=== PATIENT | male | born 1930 | race Caucasian/White ===

== ENCOUNTER 2019-10-07 06:14 | Inpatient (IN) | payer MEDICARE, BC ==
[~2019-10-07] VITALS: Ht 170.2 cm; Wt 75.7 kg
[2019-10-07 08:00] VITALS: BP 157/96
[2019-10-07] MEDS ORDERED: ZOLPIDEM TARTRATE 5 MG TABLET PO PRN (08:30)
[2019-10-07] MEDS ORDERED: MAG HYDROX/AL HYDROX/SIMETH 30 ML UDC PO PRN (08:30)
[2019-10-07] MEDS ORDERED: LORAZEPAM 0.5 MG TABLET PO PRN (08:30)
[2019-10-07] MEDS ORDERED: ACETAMINOPHEN 325 MG TABLET PO PRN (08:30)
[2019-10-07] MEDS ORDERED: MAGNESIUM HYDROXIDE 30 ML UDC PO PRN (08:30)
[2019-10-07] MEDS ORDERED: BLOOD SUGAR DIAGNOSTIC 1 EACH STRIP IN ONE (08:30)
[2019-10-07] MEDS ORDERED: FELO10TA44 PO (08:45)
[2019-10-07] MEDS ORDERED: ATOR40TA PO (08:45)
[2019-10-07] MEDS ORDERED: METO25TA4 PO (08:45)
[2019-10-07] MEDS ORDERED: ASPI-1169 PO (08:45)
--- NOTE | 2019-10-07 09:59 | NUR ---
GPS/RN DR YEE NOTIFIED OF ADMISSION . WILL COME TO SEE THE PT. MEDS READY TO RECONCILE.
[2019-10-07 16:00] VITALS: BP 135/66
--- NOTE | 2019-10-07 19:30 | NUR ---
GPS-RN ADMITTED THIS 88 Y/O MALE, ON 5150 FOR DTS/GD. NO ACUTE DISTRESS NOTED. UPON FACE TO FACE ASSESSMENT, PT. IS ALERT AND ORIENTED X1-2, CONFUSED, C/O FEELING DEPRESSED, AMBULATORY WITH WALKER. PATIENT IS UNKEMPT AND DISHEVELED. PATIENT WAS CONTRABAND. REVIEWED PATIENT'S RIGHTS. SAFETY PRECAUTIONS IMPLEMENTED. WILL CONTINUE TO MONITOR Q15MIN ROUNDS FOR SAFETY AND BEHAVIOR.
[2019-10-07 20:00] VITALS: BP 139/72
[2019-10-07 20:07] VITALS: BP 139/72
[2019-10-07] MEDS: QUETIAPINE FUMARATE 25 MG TABLET PO SCH (21:27)
[2019-10-07] MEDS: ATORVASTATIN 40 MG TABLET PO SCH (21:27)
[2019-10-07] MEDS: SULFAMETH/TRIMETH 800/160 MG 1 UDTAB TABLET PO SCH (21:31)
[2019-10-08 07:19] LABS: BASOPHILS % (AUTO) 0.6 % (0.0-2.0); EOSINOPHILS % (AUTO) 2.1 % (0.0-6.0); HEMATOCRIT 35 % (39-51); HEMOGLOBIN 11.6 g/dL (13.5-17.5); LYMPHOCYTES # (AUTO) 1.5 /CMM (0.8-4.8); LYMPHOCYTES % (AUTO) 20.2 % (20.0-44.0); MEAN CORPUSCULAR HGB CONC 33 g/dl (31.0-36.0); MEAN CORPUSCULAR VOLUME 88 fL (80-96); MONOCYTES # (AUTO) 0.7 /CMM (0.1-1.30); MONOCYTES % (AUTO) 9.6 % (2.0-12.0); NEUTROPHILS % (AUTO) 67.5 % (43.0-81.0); PLATELET COUNT (AUTO) 207 /CMM (150-450); RED BLOOD CELL COUNT(AUTO) 3.95 MIL/uL (4.5-6.0); WHITE BLOOD COUNT (AUTO) 7.4 K/uL (4.3-11.0)
[2019-10-08 07:35] LABS: CALCIUM, SERUM 8.8 mg/dL (8.5-10.1); POTASSIUM 4.3 mmol/L (3.5-5.1)
[2019-10-08 07:57] LABS: CHOLESTEROL 143 mg/dL (<200); HDL CHOLESTEROL 58 mg/dL (40-60); LDL 78 mg/dL (0-99); TRIGLYCERIDES 48 mg/dL (30-150)
[2019-10-08 08:00] VITALS: BP 126/58
[2019-10-08] MEDS: SULFAMETH/TRIMETH 800/160 MG 1 UDTAB TABLET PO SCH ×2 (08:32→20:20)
[2019-10-08] MEDS: ASPIRIN 81 MG TAB.CHEW PO SCH (08:32)
[2019-10-08] MEDS: ESCITALOPRAM OXALATE (10 MG) 10 MG TABLET PO SCH (08:32)
[2019-10-08] MEDS: AMLODIPINE BESYLATE 10 MG TABLET PO SCH (08:36)
[2019-10-08] MEDS: METOPROLOL SUCCINATE 25 MG TAB.SR.24H PO SCH (08:37)
[2019-10-08] MEDS ORDERED: FELODIPINE 2.5 MG TAB.SR.24H PO SCH (09:00)
--- NOTE | 2019-10-08 15:22 | NUR ---
Family Contact: SW called the pts step son, Lucius ([phone]), and went through the pts initial treatment and discharge plan. He informed the SW that the pt currently resides at [facility].
--- NOTE | 2019-10-08 16:02 | NUR ---
Initial Discharge Plan: Pt currently resides at [facility] located at [address] [place] [address]; . Per pt, he would like to return to his home. SW will work with the pt and the MD regarding appropriate discharge planning. SW will form a safe and proper discharge.
[2019-10-08 16:10] VITALS: BP 102/50
[2019-10-08 20:01] VITALS: BP 151/87
[2019-10-08] MEDS: ATORVASTATIN 40 MG TABLET PO SCH (21:14)
[2019-10-08] MEDS: QUETIAPINE FUMARATE 25 MG TABLET PO SCH (21:14)
[2019-10-09 08:00] VITALS: BP 142/61
[2019-10-09] MEDS: METOPROLOL SUCCINATE 25 MG TAB.SR.24H PO SCH (08:56)
[2019-10-09] MEDS: ASPIRIN 81 MG TAB.CHEW PO SCH (08:56)
[2019-10-09] MEDS: SULFAMETH/TRIMETH 800/160 MG 1 UDTAB TABLET PO SCH ×2 (08:56→21:23)
[2019-10-09] MEDS: AMLODIPINE BESYLATE 10 MG TABLET PO SCH (08:56)
[2019-10-09] MEDS: ESCITALOPRAM OXALATE (10 MG) 10 MG TABLET PO SCH (08:56)
--- NOTE | 2019-10-09 12:46 | NUR ---
Facility Contact: SW called [facility] ([phone]) and spoke to the law office receptionist who stated that there is no one at Admissions who can assist the SW at this time.
[2019-10-09 16:00] VITALS: BP 116/63
[2019-10-09 21:07] VITALS: BP 140/58
[2019-10-09] MEDS: QUETIAPINE FUMARATE 25 MG TABLET PO SCH (21:23)
[2019-10-09] MEDS: ATORVASTATIN 40 MG TABLET PO SCH (21:23)
[2019-10-10 08:00] VITALS: BP 135/62
[2019-10-10] MEDS: ASPIRIN 81 MG TAB.CHEW PO SCH (08:37)
[2019-10-10] MEDS: ESCITALOPRAM OXALATE (10 MG) 10 MG TABLET PO SCH (08:37)
[2019-10-10] MEDS: AMLODIPINE BESYLATE 10 MG TABLET PO SCH (08:38)
[2019-10-10] MEDS: SULFAMETH/TRIMETH 800/160 MG 1 UDTAB TABLET PO SCH ×2 (08:38→21:27)
[2019-10-10] MEDS: METOPROLOL SUCCINATE 25 MG TAB.SR.24H PO SCH (08:38)
[2019-10-10] MEDS: QUETIAPINE FUMARATE 25 MG TABLET PO SCH ×3 (10:59→21:27)
[2019-10-10 16:00] VITALS: BP 125/60
[2019-10-10 20:30] VITALS: BP 105/57
[2019-10-10] MEDS: ATORVASTATIN 40 MG TABLET PO SCH (21:27)
[2019-10-11 08:00] VITALS: BP 135/55
[2019-10-11 08:29] VITALS: BP 135/55
[2019-10-11] MEDS: AMLODIPINE BESYLATE 10 MG TABLET PO SCH (08:29)
[2019-10-11] MEDS: ASPIRIN 81 MG TAB.CHEW PO SCH (08:29)
[2019-10-11] MEDS: QUETIAPINE FUMARATE 25 MG TABLET PO SCH (08:29)
[2019-10-11] MEDS: METOPROLOL SUCCINATE 25 MG TAB.SR.24H PO SCH (08:29)
--- NOTE | 2019-10-11 10:23 | NUR ---
Probable Cause (PC) Hearing Notification: SW called the pts step son, Lucius ([phone]), and informed him of the hearing and what it entails. He stated that he does not believe that the pt needs to remain in the hospital and stated that he will attend the hearing.
--- NOTE | 2019-10-11 10:26 | NUR ---
Facility Contact: CAROL called [facility] ([phone]) and spoke to [facility] and confirmed that the pt can return to their facility. She stated that she would like a doctors note to be faxed to [phone]. CAROL stated that she will be sending her MD progress notes and she stated that is acceptable. CAROL informed her that there may be a chance that he will be discharged to the facility today.
--- NOTE | 2019-10-11 10:32 | NUR ---
Facility Contact: CAROL faxed updated progress notes to [facility] with attn to Ernie to the fax number: [phone].
--- NOTE | 2019-10-11 13:55 | NUR ---
PATIENT WITH CERTIFICATION REVIEW HEARING REPRESENTED BY HEARING REFEREE, PTS. ADVOCATE AND HOSPITAL STAFF. PT. ATTENDED THE HEARING WITH HIS STEP SON DANGELO. AFTER CONSIDERING ALL HE EVIDENCE PRESENTED, THE HEARING REFEREE FINDS THAT: THERE IS NOT PROBABLE CAUSE THAT THE PERSON, A RESULT OF A MENTAL DISORDER IS A DANGER TO SELF, A DANGER TO OTHERS OR GRAVELY DISABLED AND PT. WANTED TO BE DISCHARGED TO [facility] [place]. CALLED DR. MÉNDEZ AND DISCHARGE PT. TO [facility] AND TO CALL IN THE PRESCRIPTIONS TO THE PHARMACY.
--- NOTE | 2019-10-11 14:30 | NUR ---
Pt was discharged [facility] located [place] [address] [place] [address]; . Pt was picked up by his stepsonLucius ([phone]), around 3pm. Pts prescriptions were faxed to [facility] and . Upon discharge, the pt appeared to be in a euthymic mood and presented with a distressed affect. Pt denied both suicidal and homicidal ideation as well as auditory and visual hallucinations. Pt stated that he was content with going back to his Assisted Living. Pt will be following up with psychiatrist, Dr. Latonia Alejandre, located at [address] [place] [address]; and the pt will follow up with his provider enrollment specialist, Dr. Manish House, located at [address], [place] [address]; . Pts records were faxed to the facility to the fax number: [phone]. Interdisciplinary forms were signed. Addendum: 10/11/19 at 1431 by MELIZA MEDINA Discharge Note:
--- NOTE | 2019-10-11 14:44 | NUR ---
PRIMARY NURSE RETURNED THE BELONGINGS AND PT. SIGNED THE DISCHARGE PAPERS, AND PER PRIMARY NURSE PT. REFUSED FOR SKIN PICTURE. REGISTERED PUBLIC HEALTH NURSE MADE AWARE OF THE DISCHARGE AND PROVIDED PRESCRIPTIONS AND RECONCILED THE MEDS. STEP SON INSTRUCTED ON MEDS TO CONTINUE AND TO MAKE A FOLLOW UP WITH PSYCH AND MEDICAL DOCTORS AND AGREED. CALLED [facility] AT [phone] AND PRESCRIPTIONS WAS CALLED AND SPOKE TO THE PHARMACIST ASHWIN. PT. LEFT THE UNIT AT 1448 VIA A WHEELCHAIR AND WHEELED BY STAFF AND THE PRIMARY NURSE WITH THE ILIR SON. LEFT WITHOUT DISTRESS AND ON STABLE CONDITION, DENIES SUICIDAL AND HOMICIDAL.
== END 2019-10-11 14:48 | DRG 881 ==
LOC: GPS 06:14
PROVIDERS: ADMIT Psychiatry & Neurology Psychiatry; ATTEND Registered Nurse
DX: F32.9 Major depressive disorder, single episode, unspecified (principal); F03.91 Unspecified dementia, unspecified severity, with behavioral disturbance; N39.0 Urinary tract infection, site not specified; F29 Unspecified psychosis not due to a substance or known physiological condition; I10 Essential (primary) hypertension; E78.5 Hyperlipidemia, unspecified; N40.0 Benign prostatic hyperplasia without lower urinary tract symptoms; K21.9 Gastro-esophageal reflux disease without esophagitis; Z73.6 Limitation of activities due to disability; G89.29 Other chronic pain; Z81.8 Family history of other mental and behavioral disorders; M19.90 Unspecified osteoarthritis, unspecified site
CPT/HCPCS: 36415; 80048-TC; 80061-TC; 85025-TC; 87081-TC